=== PATIENT | female | born 1960 | race Caucasian/White ===

== ENCOUNTER 2017-01-17 16:29 | Emergency (ER) | payer OTHER ==
--- NOTE | 2017-02-04 11:52 | ER ---
ADMIT: 01/17/2017 RM/LOC: ER [facility] MR#: [id number] [address] [id number] JUANA [address]IN [address] [id number] Emergency Room Report SEX: F AGE: 56 : 1960 DATE: 01/17/2017 ADDENDUM: This 56-year-old white female coming in with a recently diagnosed pneumonia. They wanted to put her in the hospital, but then she came over here after couple days. She had her symptoms on Thursday, they put her on Tamiflu. At here, we ruled her out as a sepsis. Her chest x-ray is normal. CBC, chemistry, lactate negative. We did repeat the influenza which was positive once again, I do believe for A. At this time, continue Tamiflu, fluids, rest, off work until next . CONDITION ON DISCHARGE: Fair. Donal Rojas MD/ philomena JOB #: [id number] CC: Donal Rojas MD, Attending Physician Camilo Marinelli DO, Family Physician
== END 2017-01-17 19:20 | disposition home or self-care (01) ==
LOC: ER 16:29
DX: J10.1 Influenza due to other identified influenza virus with other respiratory manifestations (principal); Z90.710 Acquired absence of both cervix and uterus; Z98.890 Other specified postprocedural states